=== PATIENT | female | born 1980 | race Caucasian/White ===

== ENCOUNTER 2022-07-18 19:19 | Emergency (ER) | payer BC ==
[2022-07-18] MEDS ORDERED: Cefdinir 300 MG Cap PO ONE (19:43)
[2022-07-18] MEDS ORDERED: Phenazopyridine 95 MG Tab PO ONE (19:43)
[2022-07-19] MEDS ORDERED: Phenazopyridine 95 MG Tab PO ONE (19:43)
== END 2022-07-18 20:35 | disposition home or self-care (01) ==
LOC: JD.ED 19:19
DX: N30.00 Acute cystitis without hematuria (principal)
CPT/HCPCS: 81001; 87086; 99283; A9270